=== PATIENT | female | born 1970 | race African-American/Black ===

== ENCOUNTER 2019-12-06 12:25 | Emergency (ER) | payer OTHER ==
[2019-12-06 12:41] VITALS: BP 132/83
[2019-12-06] MEDS ORDERED: DIPH/PERTUSS(ACELL)/TETANUS VAC/PF 0.5 ML SYR (>=10YO) IM ONE (12:51)
--- NOTE | 2019-12-06 12:54 | ER Document Report ---
ED Medical Screen (RME) - General Chief Complaint: Finger Injury Stated Complaint: WC/LEFT HAND INJURY Time Seen by Provider: 12/06/19 12:47 Mode of Arrival: Ambulatory Information source: Patient Notes: HPI;-year-old female presents emergency room with a laceration through her left thumb and thumbnail that happened at work around 10 AM this morning. Patient states she was using a head paper tester at work when she accidentally cut her finger. Bleeding is controlled. Unknown last tetanus shot. Patient is right- handed. PE: Alert and oriented x3. Mild distress noted. Lungs: Clear to auscultation without rales, rhonchi, wheezes. Heart: Regular rate rhythm without murmurs, rubs, gallops. There is a laceration that extends from the lateral aspect of the thumb into the nailbed. Bleeding is controlled. Positive left radial pulse. Capillary refill less than 3 seconds. I have greeted and performed a rapid initial assessment of this patient. A comprehensive ED assessment and evaluation of the patient, analysis of test results and completion of the medical decision making process will be conducted by additional ED providers. I have specifically instructed the patient or famil y members with the patient to immediately return to any nursing staff should anything change in the patient's condition or with their chief complaint. TRAVEL OUTSIDE OF THE [place] IN LAST 30 DAYS: No - Related Data Allergies/Adverse Reactions: No Known Allergies Allergy (Verified 12/06/19 12:46) Past Medical History - Social History Frequency of alcohol use: Occasional Physical Exam - Vital signs Vitals: Temp Pulse Resp BP Pulse Ox 98.3 F 74 16 132/83 H 74 L 12/06/19 12:40 12/06/19 12:40 12/06/19 12:40 12/06/19 12:40 12/06/19 12:40 Course - Vital Signs Vital signs: Temp Pulse Resp BP Pulse Ox 98.3 F 74 16 132/83 H 74 L 12/06/19 12:40 12/06/19 12:40 12/06/19 12:40 12/06/19 12:40 12/06/19 12:40
--- NOTE | 2019-12-06 13:22 | RADIOLOGY REPORT (SQ) ---
EXAM DESCRIPTION: FINGER LEFT IMAGES COMPLETED DATE/TIME: 12/06/2019 1:11 pm REASON FOR STUDY: left thumb injury COMPARISON: None. NUMBER OF VIEWS: Three views. TECHNIQUE: AP, lateral, and oblique images acquired of the left thumb. LIMITATIONS: None. FINDINGS: MINERALIZATION: Normal. BONES: No acute fracture or dislocation. No worrisome bone lesions. SOFT TISSUES: No soft tissue swelling. No foreign body. OTHER: No other significant finding. IMPRESSION: NO RADIOGRAPHIC EVIDENCE OF ACUTE INJURY. TECHNICAL DOCUMENTATION: JOB ID: [id number] 2010 [employer]- All Rights Reserved Reading location - IP/workstation name: [email or web address]
[2019-12-06] MEDS ORDERED: LIDOCAINE 1% INJ-PF (10 MG/ML) 30 ML SDV INJ ONE (14:13)
--- NOTE | 2019-12-06 15:16 | ER Document Report ---
ED General - General Chief Complaint: Finger Injury Stated Complaint: WC/LEFT HAND INJURY Time Seen by Provider: 12/06/19 12:47 Mode of Arrival: Ambulatory Information source: Patient Notes: 49-year-old -[place]ag[place] female coming in today with left thumb laceration. 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 She is up-to-date on tetanus. TRAVEL OUTSIDE OF THE [place] IN LAST 30 DAYS: No - Related Data Allergies/Adverse Reactions: No Known Allergies Allergy (Verified 12/06/19 12:46) Past Medical History - General Information source: Patient - Social History Smoking Status: Never Smoker Frequency of alcohol use: Occasional Family History: Reviewed & Not Pertinent Review of Systems - Review of Systems Notes: Constitutional: No fevers. No chills. EENT: No eye redness. No eye pain. No ear pain. No sore throat. Cardiovascular: No chest pain. No palpitations. Respiratory: No cough. No shortness of breath. No respiratory distress. Gastrointestinal: No abdominal pain. No nausea, vomiting, or diarrhea. Genitourinary: Atraumatic. No lesions. No pain. No discharge. Musculoskeletal: Atraumatic. No swelling. No deformities. Skin: No rash or lesions. Positive left thumb laceration Lymphatic: No swollen lymph nodes. Neurologic: No headache. No syncope. Psychiatric: No suicidal or homicidal ideation. Physical Exam - Vital signs Vitals: Temp Pulse Resp BP Pulse Ox 98.3 F 74 16 132/83 H 74 L 12/06/19 12:40 12/06/19 12:40 12/06/19 12:40 12/06/19 12:40 12/06/19 12:40 - Notes Notes: General: Well-developed, well-nourished. In no acute distress. Non-toxic appearing. Cardiac: Well-perfused. Regular rate and rhythm. No murmurs, rubs, or gallops. Pulmonary: No respiratory distress. No cyanosis. Bilateral lung fiels are clear to auscultation. Abdominal: Non-distended. Non-rigid. Bowels sounds are present in all four quadrants. No guarding or rebound. HEENT: Head is atraumatic. Conjunctivae not reddened. No tearing. PERRL. EOMI. Orbits atraumatic. No periorbital swelling or erythema. Oropharynx is without erythema, swelling, or exudates. Neck: Supple. No adenopathy. No meningismus. Dermatologic: Warm with good turgor. No rash. Atraumatic. Chest: Atraumatic. No chest wall tenderness to palpation. Musculoskeletal: 2 cm laceration over the tip of the left thumb involving the distal fingernail. No active bleeding. No bony deformity. Neurovascularly intact Genitourinary: Examination deferred Neurologic: No gross neurologic deficits. Psychiatric: Normal mood. Course - Re-evaluation Re-evalutation: 12/06/19 15:14 X-rays negative. Tetanus is up-to-date. See laceration note for details of the repair. - Vital Signs Vital signs: Temp Pulse Resp BP Pulse Ox 98.3 F 74 16 132/83 H 74 L 12/06/19 12:40 12/06/19 12:40 12/06/19 12:40 12/06/19 12:40 12/06/19 12:40 - Diagnostic Test Radiology reviewed: Reports reviewed Procedures - Laceration/Wound Repair Left Thumb Time completed: 15:15 Wound length (cm): 2 Wound's Depth, Shape: Linear, Nail-avulsed - Partially avulsed Laceration pre-procedure: Sterile PPE donned, Sterile drapes applied, Shur-Clens applied Anesthetic type: 1% Lidocaine Volume Anesthetic (mLs): 5 - Digital block Wound explored: Clean Wound Repaired With: Sutures Suture Size/Type: 4:0, Ethilon Number of Sutures: 5 Layer Closure?: No Post-procedure wound care: Sterile dressing applied Post-procedure NV exam normal: Yes Complications: No Discharge - Discharge Clinical Impression: Finger laceration Qualifiers: Encounter type: initial encounter Finger: thumb Damage to nail status: with damage Foreign body presence: without foreign body Laterality: left Qualified Code(s): S61.112A - Laceration without foreign body of left thumb with damage to nail, initial encounter Condition: Good Disposition: HOME, SELF-CARE Instructions: Antibiotic Ointment Protection ([facility]), Laceration Care ([facility]), Soap Cleansing ([facility]) Additional Instructions: Take ibuprofen or Aleve as needed for pain. If pain is severe and not alleviated with [id number] medications, he may take [place] as directed. Again, do not drive any vehicles or operate heavy machinery while under the influence of the prescription medication. Follow-up with the Workmen's Comp. provider to have sutures removed in 10 days.
[2019-12-06] MEDS ORDERED: HYDROCODONE/ACETAMINOPHEN 5-325 MG (6 TAB/ER DISP) PO PRN (15:21)
== END 2019-12-06 16:25 | disposition home or self-care (01) ==
LOC: ER 12:25
DX: S61.012A Laceration without foreign body of left thumb without damage to nail, initial encounter (principal); W27.5XXA Contact with paper-cutter, initial encounter; Y92.219 Unspecified school as the place of occurrence of the external cause; Y99.0 Civilian activity done for income or pay
CPT/HCPCS: 99283; 73140; 12001; J3490